=== PATIENT | male | born 1975 | race Caucasian/White ===

== ENCOUNTER 2018-03-02 21:33 | Emergency (ER) | payer MEDICAID ==
[2018-03-02] MEDS: IBUPROFEN 600 MG TAB PO (22:42)
== END 2018-03-03 01:43 | disposition home or self-care (01) ==
LOC: FTE 03-03 01:43
DX: S89.91XA Unspecified injury of right lower leg, initial encounter (principal); F17.210 Nicotine dependence, cigarettes, uncomplicated; W22.8XXA Striking against or struck by other objects, initial encounter; Y92.9 Unspecified place or not applicable
CPT/HCPCS: 29505; 73562; 99283-25

== ENCOUNTER 2018-10-31 22:42 | Emergency (ER) | payer MEDICAID ==
[2018-10-31 23:22] LABS: ADD MAN DIFF? NO
[2018-10-31 23:24] LABS: BASOPHIL # 0.1 10^3/ul (0.0-0.1); BASOPHILS % 0.7 % (0.0-2.0); EOSINOPHILS # 0.3 10^3/ul (0.0-0.5); EOSINOPHILS % 2.7 % (0.0-7.0); HEMATOCRIT 43.8 % (42.0-52.0); HEMOGLOBIN 14.7 g/dl (14.0-18.0); LYMPHOCYTES # 3.9 10^3/ul (0.8-2.9); LYMPHOCYTES % 36.3 % (15.0-51.0); MEAN CORPUSCULAR HEMOGLOBIN 31.7 pg (29.0-33.0); MEAN CORPUSCULAR HGB CONC 33.6 g/dl (32.0-37.0); MEAN CORPUSCULAR VOLUME 94.4 fl (82.0-101.0); MEAN PLATELET VOLUME 9.5 fl (7.4-10.4); MONOCYTE # 1.1 10^3/ul (0.3-0.9); MONOCYTES % 9.8 % (0.0-11.0); NEUTROPHIL # 5.4 10^3/ul (1.6-7.5); NEUTROPHILS % 50.2 % (39.0-77.0); PLATELET COUNT 229 10^3/UL (140-415); RED BLOOD COUNT 4.64 10^6/ul (4.70-6.10); RED CELL DISTRIBUTION WIDTH 12.3 % (11.5-14.5)
[2018-10-31 23:24] LABS: WHITE BLOOD COUNT 10.7 10^3/ul (4.8-10.8)
[2018-10-31] MEDS: NICARDipine HCL 30 MG CAPSULE PO (23:28)
[2018-10-31 23:52] LABS: ANION GAP 9 (5-13); BLOOD UREA NITROGEN 13 mg/dl (7-20); CALCIUM 9.3 mg/dl (8.4-10.2); CARBON DIOXIDE 28 mmol/L (21-31); CHLORIDE 107 mmol/L (97-110); CREATININE 1.07 mg/dl (0.61-1.24); Estimated GFR > 60 mL/min (>60); GLUCOSE 103 mg/dl (70-220); POTASSIUM 4.1 mmol/L (3.5-5.1); SODIUM 144 mmol/L (135-144)
[2018-11-01 00:03] LABS: TROPONIN-I < 0.012 ng/ml (0.000-0.120)
== END 2018-11-01 00:45 | disposition home or self-care (01) ==
LOC: E/R 11-01 00:45
DX: I10 Essential (primary) hypertension (principal); R06.02 Shortness of breath; Z87.891 Personal history of nicotine dependence
CPT/HCPCS: 36415; 71045; 80048; 84484; 85025; 93005; 99285-25